=== PATIENT | male | born 1940 | race Asian ===

== ENCOUNTER 2017-01-25 09:12 | Day surgery (SDC) | payer MEDICAID ==
[~2017-01-25 09:12] MED LIST: ADALAT CC30 M1 PO; ALBUTEROL2.5 MG/3 M INH; BRINTELLIX10 M1 PO; CARBIDOPA-LEVO E1 EA PO; CARVEDILOL PO; CENTRUM SILVER1 EAC3 PO; CLONAZEPAM0.5 M2 PO; COREG25 M1 PO; FLOVENT DISKU100 MC1 IH; FOLIC ACID1 M1 PO; GABAPENTIN100 M1 PO; HYDROCODON-ACE1 EA16 PO; IPRAT-ALBUT 0.5-3 ML NEB; KEPPRA PO; LANTUS100 UNITS/ SC; LEXAPRO10 M2 PO; LEXAPRO5 M1 PO; MOTION SICKNESS25 MG PO; OMEPRAZOLE40 M2 PO; PRAVASTATIN SOD40 M1 PO; PROCARDIA XL60 M1 PO; RENAGEL800 M1 PO; SYMBICORT 160-1 PUFF INH; SYNTHROID50 MC1 PO; ZOFRAN4 M2 PO; ZOLOFT50 M1 PO; ZYRTEC1010 PO
== END 2017-01-25 12:40 ==
LOC: SHSB 09:12
PROC: B50WYZZ Plain Radiography of Dialysis Shunt/Fistula using Other Contrast (ICD-10-PCS; principal; 2017-01-25)
DX: T82.858A Stenosis of other vascular prosthetic devices, implants and grafts, initial encounter (principal); N18.6 End stage renal disease; Z79.899 Other long term (current) drug therapy
CPT/HCPCS: C1725; C1769; J2250; J2405; J3010; Q9967